=== PATIENT | male | born 1980 | race Caucasian/White ===

== ENCOUNTER 2018-04-12 18:53 | Emergency (ER) | payer MEDICAID ==
[~2018-04-12] VITALS: Wt 130.5 kg
[2018-04-12 19:02] VITALS: BP 150/94; PULSE 105; RESP 18
[2018-04-12] MEDS ORDERED: FLUORESCEIN STRIP RIGHT EYE ONE (21:00)
[2018-04-12] MEDS ORDERED: TETRACAINE 0.5% 4 ML OPH RIGHT EYE ONE (21:00)
--- NOTE | 2018-04-12 21:04 | ERD ---
ER Documentation Chief Complaint Chief Complaint PAIN TO LEFT EYE X'S 1 DAY HPI This is a 37-year-old male who presents ED with right eye pain times a day. Patient states that he works as an electrician constructor supervisor and while he was cutting a wire earlier today the wire bounce back and struck him in the right eye. Patient admits to some right eye pain as well as some haziness. Denies blurry vision, changes in vision, headache, worst headache of life, confusion, loss of consciousness with this event. Patient admits to a bloody right eye. No known drug allergies. Does not wear glasses or contact lenses ROS All systems reviewed and are negative except as per history of present illness. Allergies Allergies: Coded Allergies: No Known Allergy (Unverified , 04/12/18) Physical Exam Vitals Vital Signs Date Temp Pulse Resp B/P (MAP) Pulse Ox O2 O2 Flow FiO2 Time Delivery Rate 04/12/18 98.2 105 18 150/94 96 19:02 (112) Physical Exam Const: No acute distress Head: Atraumatic Eyes: Subconjunctival hemorrhage of right lateral eye, no evidence of foreign body, PERRLA, EOMs intact bilaterally x6, Eye Exam w/ Javier Lamp: Visual Acuity: 20/50 and right eye, 20/20 in left eye Visual Busch: Intact in all four quadrants bilaterally Lac ducts/glands: No swelling Lids w/ evertion: Normal, no foreign body Conj/Medicine Park: There is increased uptake with ayan seen along the right cornea, not over iris or pupil, ENT: Normal External Ears, Nose and Mouth. Neck: Full range of motion. No meningismus. Resp: Clear to auscultation bilaterally Cardio: Regular rate and rhythm, no murmurs Ext: No cyanosis, or edema Neur: Awake and alert Psych: Normal Mood and Affect Results 24 hrs Current Medications Medications Dose Sig/Stanley Start Time Status Last (Trade) Ordered Route PRN Stop Time Admin Dose Reason Admin Fluorescein 1 strip ONCE ONCE 04/12/18 DC Sodium RIGHT EYE 21:00 04/12/18 (Nghby-L-Gxny 21:01 p) Tetracaine 1 drop ONCE ONCE 04/12/18 DC HCl RIGHT EYE 21:00 04/12/18 (Tetracaine 21:01 0.5% Steri-Unit Britta) Procedures/MDM PROCEDURES: Fluorescein stain performed on right eye, refer to exam ER COURSE: The patient was stable throughout ED course. I kept the patient and/or family informed of laboratory and diagnostic imaging results throughout the emergency room course. The patient was promptly evaluated and a treatment plan was devised based on H&P and other data. This plan was discussed with the patient who agreed and had no further questions or concerns prior to discharge. MEDICAL DECISION MAKING: This is a 37-year-old male presents ED with complaints of right eye pain after a wire accidentally struck right eye while working earlier today. Fluorescein is positive for an increased uptake on the right eye and shows an corneal abrasion. no FB is identified. There is no siedels sign and no evidence of globe perforation. Suspicion for orbital cellulitis is low. Patient does not have any eye pain or painful extraocular movements and there is no surrounding erythema. Patient is afebrile and extremely well-appearing. Patient has denied any trauma to the eye and any vision loss or vision changes. No evidence of globe perforation or other ophthalmic emergencies. Pt will be sent home with abx, patient advised to follow up with [facility] first thing in the morning. return to ER sooner if symptoms worsen. My medical decision making shared with the patient she understands and agrees with plan. DISPOSITION PLAN: We discussed follow up with the patient's primary care doctor within 24 to 48 hours. Patient counseled regarding my diagnostic impression and care plan. Prior to discharge all questions answered. Pt agrees with treatment plan and understands strict return precautions. Precautionary instructions provided including instructions to return to the ER if not improving or for any worsening or changing symptoms or concerns. SPECIALIST FOLLOW UP RECOMMENDED: [facility] Patient has been advised to follow up with primary care in 1-2 days. Disclaimer: Inadvertent spelling and grammatical errors are likely due to EHR/dictation software use and do not reflect on the overall quality of patient care. Also, please note that the electronic time recorded on this note does not necessarily reflect the actual time of the patient encounter. Departure Diagnosis: Primary Impression: Corneal abrasion, right Encounter type: initial encounter Qualified Codes: S05.01XA - Injury of conjunctiva and corneal abrasion without foreign body, right eye, initial encounter Additional Impression: Subconjunctival hemorrhage, traumatic Laterality: right Qualified Codes: H11.31 - Conjunctival hemorrhage, right eye Condition: Stable Patient Instructions: Corneal Abrasion, Subconjunctival Hemorrhage [facility]: [facility] Additional Instructions: Patient advised to follow-up with [facility] first thing tomorrow morning. Patient advised to return to the ED immediately for new or worsening symptoms. Patient advised to follow up with primary care provider in the next 24-48 hours. Patient verbalized understanding and agrees with treatment plan and course of action. If patient has no primary care they may follow up with one of the [facility] listed on the following page or one of the options listed below [facility] + [facility] [address] [place] [id number] or [facility] [address] [place] [address] or [facility] [address] [place] [address] AGUSTO MEADOWS PA-C Apr 12, 2018 21:04
[2018-04-12] MEDS ORDERED: OFLO5DRO46 RIGHT EYE (21:59)
== END 2018-04-12 22:36 | disposition home or self-care (01) ==
LOC: FTE 18:53
DX: S05.01XA Injury of conjunctiva and corneal abrasion without foreign body, right eye, initial encounter (principal); H11.31 Conjunctival hemorrhage, right eye; W26.8XXA Contact with other sharp object(s), not elsewhere classified, initial encounter; Y92.89 Other specified places as the place of occurrence of the external cause
CPT/HCPCS: Z7502; Z7610; 99283